=== PATIENT | female | born 2000 | race Caucasian/White ===

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

== ENCOUNTER 2019-06-01 07:45 | Inpatient (IN) | payer OTHER ==
[2019-06-01 08:53] VITALS: BMI 32.4
[2019-06-01] MEDS ORDERED: DEXTROSE 5%-LACTATED RINGERS 1,000 ML IV SCH (09:00)
[2019-06-01] MEDS ORDERED: DINOPROSTONE 10 MG VAGINAL SUPPOSITORY VG ONE (09:00)
[2019-06-01 10:26] LABS: BASO % 0.8 % (0-2.0); EOS % 0.9 % (0-4.5); HEMOGLOBIN 11.1 GM/dL (10.7-15.3); MCH 30.1 pg (25.7-33.7); MCHC 34.6 g/dl (32.0-36.0); MEAN CELL VOLUME 87.1 fl (80-96); MEAN PLT VOLUME 9.8 fl (7.5-11.1); MONO % 7.4 % (3.8-10.2); NEUT % 57.9 % (42.8-82.8); PLATELET COUNT 252 K/MM3 (134-434); RBC 3.68 M/mm3 (3.60-5.2); RDW 13.3 % (11.6-15.6); WHITE BLOOD COUNT 6.3 K/mm3 (4.0-10.0)
[2019-06-01 10:41] LABS: INR 1.05 (0.83-1.09); PROTHROMBIN TIME (PATIENT) 12.4 SEC (9.7-13.0)
[2019-06-01 10:43] LABS: ACTIVATED PTT 26.4 SECONDS (25.2-36.5)
[2019-06-01 10:56] LABS: CALCIUM 8.8 mg/dL (8.5-10.1); CREATININE 0.6 mg/dL (0.55-1.3); POTASSIUM 3.9 mmol/L (3.5-5.1)
[2019-06-01] MEDS ORDERED: BUTORPHANOL TARTRATE 1 MG/ML VIAL IVPB ONE (13:31)
[2019-06-01] MEDS ORDERED: PROMETHAZINE HCL 25 MG/1 ML VIAL IVPUSH ONE (13:31)
--- NOTE | 2019-06-01 13:34 | HP ---
Past Medical History - Primary Care Physician PCP:: Cara Woodruff - Admission Chief Complaint: IUGR for induction History of Present Illness: 19 yo P1 EGA 37 weeks for induction due to growth restriction IUGR History Source: Patient Limitations to Obtaining History: No Limitations - Past Medical History ...: 2 ...Para: 1 ...Term: 1 ...: 0 ...Spon : 0 ...Induced : 0 ...Multiple Gestation: 0 ...EDC by Son[facility]: 06/20/19 - Past Surgical History Past Surgical History: Yes: None Hx Myomectomy: No Hx Transabdominal Cerclage: No - Smoking History Smoking history: Never smoked Have you smoked in the past 12 months: No - Alcohol/Substance Use Hx Alcohol Use: No History of Substance Use: reports: None - Social History History of Recent Travel: No Home Medications - Allergies Allergies/Adverse Reactions: Allergies Allergy/AdvReac Type Severity Reaction Status Date / Time No Known Allergies Allergy Verified 06/01/19 08:54 - Home Medications Home Medications: Ambulatory Orders Vit No.130/Iron/Folic [ Tablet] 1 each PO DAILY 08/30/17 Albuterol Sulfate Inhaler - [Ventolin Hfa Inhaler -] 1 - 2 inh PO Q4H PRN Ibuprofen [Motrin -] 600 mg PO QID #28 tablet 06/01/19 Review of Systems - Review of Systems Constitutional: reports: No Symptoms Eyes: reports: No Symptoms HENT: reports: No Symptoms Neck: reports: No Symptoms Cardiovascular: reports: No Symptoms Respiratory: reports: No Symptoms Gastrointestinal: reports: No Symptoms Genitourinary: reports: No Symptoms Breasts: reports: No Symptoms Reported Musculoskeletal: reports: No Symptoms Integumentary: reports: No Symptoms Neurological: reports: No Symptoms Endocrine: reports: No Symptoms Hematology/Lymphatic: reports: No Symptoms Psychiatric: reports: No Symptoms Physical Exam - Maternity Vital Signs: Vital Signs Temperature 98.2 F 06/01/19 12:00 Pulse Rate 79 06/01/19 12:00 Respiratory Rate 20 06/01/19 12:00 Blood Pressure 113/63 06/01/19 12:00 O2 Sat by Pulse Oximetry (%) Constitutional: Yes: Well Nourished, No Distress Neck: Yes: WNL Lungs: Clear to auscultation Breast(s): Yes: WNL - Abdominal Exam/OB Fundal Height: 36 Number of Fetuses: Single Presentation: Vertex Contractions: No Heart Rate Location: LLQ Category: I - Vaginal Exam/OB Amniotic Membrane Status: Intact Presentation: Vertex/Position - Physical Exam Musculoskeletal: Yes: WNL Extremities: Yes: WNL - Labs Lab Results: CBC, BMP 06/01/19 09:35 06/01/19 09:35 Hemorrhage Risk Assessment - Risk Factors Risk Score: 0 Risk Level: Low Risk Problem List - Problems (1) Intrauterine growth restriction (IUGR) affecting care of mother Problems reviewed: Yes Code(s): O36.5990 - MATERN CARE FOR OTH OR SUSP POOR FETL GRTH, UNSP TRI, UNSP Qualifiers: Trimester: third trimester (2) 37 weeks gestation of Problems reviewed: Yes Code(s): Z3A.37 - 37 WEEKS GESTATION OF Assessment/Plan IUGR at 37 weeks inducton cat 1 Plan cervidil
[2019-06-01] MEDS ORDERED: ELECTROLYTE-148 SOLN 1,000 ML IV SCH (13:45)
--- NOTE | 2019-06-01 15:18 | PN ---
Ante-Partal Exam - Subjective Vital Signs: Vital Signs Temperature 98.3 F 06/01/19 14:50 Pulse Rate 80 06/01/19 14:50 Respiratory Rate 20 06/01/19 14:50 Blood Pressure 117/74 06/01/19 14:50 O2 Sat by Pulse Oximetry (%) Bleeding: No Headache: No Visual changes: No - Contractions Contractions: Yes Regularity: Irregular Intensity: Mild/Mod Monitor Mode: External - Exam during Labor Variability: Moderate Category: I Monitor Accelerations: Present Monitor Decelerations: None Exam: Vaginal Dilatation (cm): 2-3 Effacement (%): 70 Amniotic Membrane Status: Intact Presentation: Vertex Station: -1 - Intrapartum Hemorrhage Risk Risk Score: 0 Risk Level: Low Risk - Assessment/Plan Assessment/Plan: s/p cervidil irregular contractions Cat 1 Plan continue cervidil
[2019-06-01] MEDS ORDERED: FENTANYL/BUPIVACAINE/NS/PF - PCEA - 50 ML DISP.SYRIN EP ONE (16:14)
[2019-06-01] MEDS ORDERED: OXYTOCIN 20 UNITS in 0.9% NS 20 UNIT/1,000 ML INFUS.BAG IV ONE (16:22)
[2019-06-01] MEDS ORDERED: BENZOCAINE 28 GM HEMORRHOIDAL OINTMENT PR PRN (16:56)
[2019-06-01] MEDS ORDERED: BISACODYL 10 MG SUPP.RECT PR PRN (16:56)
[2019-06-01] MEDS ORDERED: METHYLERGONOVINE MALEATE 0.2 MG/1 ML AMP IM PRN (16:56)
[2019-06-01] MEDS ORDERED: WITCH HAZEL 50% (TUCKS) 40 PAD/JAR PAD TP PRN (16:56)
[2019-06-01] MEDS ORDERED: BENZOCAINE 20% 57 GM BOTTLE TP PRN (16:56)
--- NOTE | 2019-06-01 16:59 | PN ---
Progress Note (short form) - Note Progress Note: Called for pt was 8 cm pt delivered precipitously baby 5 lb 10oz in NICU
--- NOTE | 2019-06-01 17:22 | PN ---
Delivery - Delivery Type of Anesthesia: None Episiotomy/Laceration: None (NVSD. Girl 7 and 9.) Delivery, Single - Condition of Military Pilot/Loan Clerk Present: Yes Infant Gender: Female Position: Left - [place] Feeding Plan Initial Plan: Elected not to breastfeed exclusively throughout hospitalization Remarks - Remarks Remarks: Delivery without any problems.
[2019-06-01] MEDS: IBUPROFEN 600 MG TABLET (FP) PO PRN (20:25)
[2019-06-01] MEDS: ACETAMINOPHEN 325 MG TABLET (FP) PO PRN (20:25)
--- NOTE | 2019-06-02 02:25 | PN ---
Post Progress Note - Subjective Subjective: 19 yo Para 2 status post vaginal delivery, seen and evaluated. Doing well. Post Day: 1 Type of Delivery: Vital Signs: Vital Signs Temperature 98.4 F 06/01/19 20:00 Pulse Rate 76 06/01/19 20:00 Respiratory Rate 20 06/01/19 20:00 Blood Pressure 112/61 06/01/19 20:00 O2 Sat by Pulse Oximetry (%) 97 06/01/19 18:00 Breast Exam: Yes: Soft Uterus: Yes: Fundus Firm Abdomen/GI: Yes: Abdomen soft, Tolerating PO Lochia: Yes: Rubra Lochia, amount: Moderate Extremities: Yes: Calves non-tender Activity: Ambulating - Labs Labs: CBC WBC 6.3 K/mm3 (4.0-10.0) 06/01/19 09:35 RBC 3.68 M/mm3 (3.60-5.2) 06/01/19 09:35 Hgb 11.1 GM/dL (10.7-15.3) 06/01/19 09:35 Hct 32.0 % (32.4-45.2) L 06/01/19 09:35 MCV 87.1 fl (80-96) 06/01/19 09:35 MCH 30.1 pg (25.7-33.7) 06/01/19 09:35 MCHC 34.6 g/dl (32.0-36.0) 06/01/19 09:35 RDW 13.3 % (11.6-15.6) 06/01/19 09:35 Plt Count 252 K/MM3 (134-434) D 06/01/19 09:35 MPV 9.8 fl (7.5-11.1) D 06/01/19 09:35 Absolute Neuts (auto) 3.7 K/mm3 (1.5-8.0) 06/01/19 09:35 Neutrophils % 57.9 % (42.8-82.8) 06/01/19 09:35 Lymphocytes % 33.0 % (8-40) D 06/01/19 09:35 Monocytes % 7.4 % (3.8-10.2) 06/01/19 09:35 Eosinophils % 0.9 % (0-4.5) 06/01/19 09:35 Basophils % 0.8 % (0-2.0) 06/01/19 09:35 Nucleated RBC % 0 % (0-0) 06/01/19 09:35 Problem List - Problems (1) Status post normal vaginal delivery Problems reviewed: Yes Code(s): BTL0140 - Assessment/Plan Status post vaginal delivery Stable Continue routine care
[2019-06-02 08:42] LABS: BASO % 0.8 % (0-2.0); EOS % 0.8 % (0-4.5); HEMATOCRIT 32.7 % (32.4-45.2); HEMOGLOBIN 11.5 GM/dL (10.7-15.3); LYMPH % 25.3 % (8-40); MCH 30.9 pg (25.7-33.7); MCHC 35.1 g/dl (32.0-36.0); MEAN PLT VOLUME 9.9 fl (7.5-11.1); MONO % 8.6 % (3.8-10.2); NEUT % 64.5 % (42.8-82.8); PLATELET COUNT 228 K/MM3 (134-434); RBC 3.72 M/mm3 (3.60-5.2); RDW 13.4 % (11.6-15.6); WHITE BLOOD COUNT 10.5 K/mm3 (4.0-10.0)
[2019-06-02] MEDS: ACETAMINOPHEN 325 MG TABLET (FP) PO PRN (09:12)
[2019-06-02] MEDS: IBUPROFEN 600 MG TABLET (FP) PO PRN (09:13)
[2019-06-02] MEDS ORDERED: FLU VACC QS2019-20(6MOS UP)/PF 60 MCG/0.5 ML SYRINGE IM ONE (10:00)
[2019-06-02] MEDS ORDERED: FLU VACCINE QUAD 60 MCG/0.5 ML (MDV 19-20) IM ONE (10:00)
[2019-06-02] MEDS ORDERED: DIPHTH,PERTUSS(ACELL),TET 0.5 ML DISP.SYRIN IM ONE (10:00)
[2019-06-03 12:05] VITALS: BP 134/69; PULSE 89; TEMP 98
--- NOTE | 2019-06-08 06:51 | DS ---
Physical Exam-VALVE STEAMER Vital Signs: Vital Signs Temperature 98.0 F 06/03/19 10:00 Pulse Rate 89 06/03/19 10:00 Respiratory Rate 18 06/03/19 10:00 Blood Pressure 134/69 06/03/19 10:00 O2 Sat by Pulse Oximetry (%) 97 06/01/19 18:00 Constitutional: Yes: Well Nourished, No Distress Gastrointestinal: Yes: WNL, Soft ....Post : Yes: Uterus firm, Uterus non-tender Edema: No Psychiatric: Yes: WNL, Alert Labs: CBC, BMP 06/02/19 08:00 06/01/19 09:35 Delivery - Delivery Type of Anesthesia: None Episiotomy/Laceration: None (NVSD. Girl 7 and 9.) EBL (cc): 400 Delivery, Single - Stages of Labor Date 1st Stage Initiatied: 06/01/19 Time 1st Stage Initiated: 11:00 Date 2nd Stage Initiated: 06/01/19 Time 2nd Stage Initiated: 16:25 Date of Delivery: 06/01/19 Time of Delivery: 16:29 Time Placenta Delivered: 16:32 - Condition of Infant Oxyhydrogen Welder/Movie Projectionist Present: Yes Name: Valerie Sharma Infant Gender: Female Weight: 5 lb 10 oz Position: Left Total Hours ROM (Hrs/Mins): 0hrs 5min - 1 Minute Total Score: 7 5 Minutes Total Score: 9 - Feeding Plan Initial Plan: Elected not to breastfeed exclusively throughout hospitalization Discharge Summary Problems reviewed: Yes Reason For Visit: INDUCTION OF LABOR growth restriction Procedures: Principal: Normal vaginal delivery Hospital Course: unremarkable Condition: Stable - Instructions Diet, Activity, Other Instructions: Physical activity Resume your normal everyday activity as tolerated no heavy lifting or exercise until seen by your surgeon. You may walk unlimited christian of and climb stairs. You may resume driving the car when you feel safe and comfortable behind the wheel. No sexual activity as instructed. Wound care If you have a bandage, leave it on, and keep dry for 48-72 hours. After that time discard the outer bandage. If they are tapes on the skin under the out of bandage leave them in place. They will peel off in the next 7 to 10 days. Do Not Peel them off. You may shower the day after surgery. If there are tapes present on the skin, you may shower over them. Diet There are no dietary restrictions. Eat healthy, high-fiber foods. Drink 6 to 8 glasses of liquid each day. This will assist in keeping your bowels are regular. Pain management You may take Tylenol or acetaminophen or Ibuprofen (for example, Motrin, Advil etc.) from my pain prescription medication is ordered should be taken as prescribed for moderate to severe pain. Call MD for any of the following: Severe pain not relieved by medication Fever of 101 or higher Excessive bleeding or drainage on dressing Inability to urinate Disposition: HOME - Home Medications Comprehensive Discharge Medication List: Ambulatory Orders Vit No.130/Iron/Folic [ Tablet] 1 each PO DAILY 08/30/17 Albuterol Sulfate Inhaler - [Ventolin Hfa Inhaler -] 1 - 2 inh PO Q4H PRN Ibuprofen [Motrin -] 600 mg PO QID #28 tablet 06/01/19
== END 2019-06-03 12:15 | disposition home or self-care (01) | DRG 560 ==
LOC: JLDR 07:45 → J3W 19:23
PROVIDERS: ADMIT Obstetrics & Gynecology; ATTEND Obstetrics & Gynecology
PROC: 10E0XZZ Delivery of Products of Conception, External Approach (ICD-10-PCS; principal; 2019-06-01)
PROC: 3E0P7VZ Introduction of Hormone into Female Reproductive, Via Natural or Artificial Opening (ICD-10-PCS; 2019-06-01)
DX: O80 Encounter for full-term uncomplicated delivery (principal); Z3A.37 37 weeks gestation of pregnancy; Z37.0 Single live birth
CPT/HCPCS: 36415; 59409; 80048; 85025; 85610; 85730; 86593; 86850; 86900; 86901; 87389; 90686; 90715; G0008